=== PATIENT | male | born 1995 | race Caucasian/White ===

== ENCOUNTER 2019-10-02 06:31 | Inpatient (IN) | payer MEDICAID ==
[~2019-10-02] VITALS: Ht 182.9 cm; Wt 92.1 kg
--- NOTE | 2019-10-02 06:48 | NUR ---
MD FRIEDMAN AT BEDSIDE FOR MSE
--- NOTE | 2019-10-02 06:50 | NUR ---
PT PRESENTS TO ED WITH C/O L SIDED HEAD PAIN/ NUMBNESS. PER PT HE STATES "I DID LIKE A GRAM OF COCAINE AT LEAST AND NOW I CANT FEEL MY THE LEFT SIDE OF MY HEAD OR MY FINGERS ON MY RIGHT HAND". PT STATES THAT HE DOES NASAL INHALATION OF COCAINE OCCASIONALLY FOR RECREATION AND DENIES ANY SI OR HI. PT STATES "I LOVE MY LIFE". PT AXO X4. PT SPEAKING IN CLEAR AND FULL SENTENCES. PT STATES THAT HIS STEP DAD DROPPED HIM OFF AND THAT HE WANTED TO CALL HIS MOTHER. PT CONNECTED TO FULL CM AND PULSE OX MONITORS. NAD AT THIS TIME. AWAITING NEW ORDERS
--- NOTE | 2019-10-02 07:20 | NUR ---
REPORT GIVEN TO RAKESH Mulligan RN. ALL QUESTIONS AND CONCERNS ADDRESSED AT THIS TIME
--- NOTE | 2019-10-02 07:22 | NUR ---
PT RECLINING ON GURCHAN WITH NAD. PT STATES " I FEEL SO MUCH BETTER AFTER THE STUFF YOU GUYS GAVE ME, IM SO STUPID, IM NEVER GOING TO DO THAT AGAIN." FLUIDS RUNNING WITH NO INCIDENCE. PT HOOKED UP TO FULL MONIOTRS, WILL CONTINUE TO MONITOR.
[2019-10-02 07:24] LABS: BASOPHIL % 0.4 % (0-2); PLATELET COUNT 243 x10^3mcL (130-400); RED CELL DISTRIBUTION WIDTH 13.1 % (11.5-14.5)
--- NOTE | 2019-10-02 07:30 | NUR ---
PT AMBULATED TO THE RESTROOM WITH STEADY GAIT AND NAD
[2019-10-02 07:38] LABS: CALCIUM 8.9 mg/dL (8.5-10.1); CREATININE SERUM 0.9 mg/dL (0.7-1.3); GFR1 > 60 mL/min; GLUCOSE SERUM 101 mg/dL (74-106)
[2019-10-02 07:42] LABS: ALBUMIN 4.1 g/dL (3.4-5.0); ALKALINE PHOSPHATASE 85 U/L (46-116); ALT/SGPT 49 U/L (16-63); AST/SGOT 46 U/L (15-37); BILIRUBIN TOTAL 0.5 mg/dL (0.20-1.00); CHLORIDE SERUM 99 mmol/L (98-107); POTASSIUM SERUM 3.4 mmol/L (3.5-5.1); SODIUM SERUM 135 mmol/L (136-145); TOTAL PROTEIN, SERUM 7.3 g/dL (6.4-8.2)
[2019-10-02 08:35] LABS: AMPHETAMINE QUAL UR NONE DETECTED (See below)
--- NOTE | 2019-10-02 09:45 | NUR ---
PT MOM AT BEDSIDE
--- NOTE | 2019-10-02 10:55 | NUR ---
PT SLEEPING, EASILY AROUSABLE WITH NAD. FLUIDS RUNNING WITH NO INCIDENCE, WILL CONTINUE TO MONITOR.
--- NOTE | 2019-10-02 12:24 | NUR ---
DR FRIEDMAN AT BEDSIDE SPEAKING WITH PT ABOUT ADMISSION PT AGREES
[2019-10-02 13:10] LABS: MAGNESIUM 2.1 mg/dL (1.8-2.4); PHOSPHOROUS 4.7 mg/dL (2.5-4.9)
--- NOTE | 2019-10-02 13:14 | NUR ---
REPORT GIVEN TO AUGUSTINA GUERRA FOR FURTHER CARE OF PT
--- NOTE | 2019-10-02 14:30 | NUR ---
RECEIVED PT FROM ED VIA [employer], CAME IN DUE TO NUMBNESS ON THE FACE AFTER COCAINE USE. AAOX4 STATED THAT HE HAS MILD HEADACHE. DENIES DIZZINESS. ABLE TOFOLLOW COMMANDS. DENIES NUMBNESS/TINGLING SENSATION AT THIS TIME. NO FACIAL DROOP/ARM DRIFT NOTED. NO SOB NOTED, LUNG SOUNDS CTA. DENIES CHEST PAIN/PRESSURE, SR W/ ELEVATED ST ON THE MONITOR, HR AT 85. DENIES NUMBNESS/TINGLING SENSATION. NO EDEMA NOTED. STATED THAT HE HAD 1 DIARRHEAL EPISODE TODAY. DENIES ABDOMINAL PAIN/NAUSEA/VOMITING. ABDOMEN IS SOFT. BOWEL SOUNDS ACTIVE. VOIDS. IV SITE PATENT AND INTACT. SIDE RAILS UPX2. CALL LIGHT ON REACH. MOTHER AT BEDSIDE. ENDORSED TO PRIMARY NURSE MARQUIS FOR CONTINUITY OF CARE
[2019-10-02 14:35] VITALS: BP 140/90
[2019-10-02 14:45] VITALS: Ht 182.9 cm; Wt 92.1 kg
--- NOTE | 2019-10-02 15:21 | NUR ---
PT RESTING IN BED. NO ACUTE DISTRESS. SLEEPING BUT EASILY AROUSABLE. IVF INFUSING, NO REDNESS OR SWELLING NOTED. CALL LIGHT WITHIN REACH. WILL CONTINUE TO MONITOR.
[2019-10-02 16:35] VITALS: BP 106/73
--- NOTE | 2019-10-02 17:58 | NUR ---
PT SITTING UP IN BED EATING DINNER. NO ACUTE DISTRESS. C/O MILD HEADACHE BUT TOLERABLE. IVF INFUSING, NO REDNESS OR SWELLING NOTED. CALL LIGHT WITHIN REACH. WILL BED IN LOW POSITION, CALL LIGHT WITHIN REACH. WILL ENDORSE TO ONCOMING SHIFT.
--- NOTE | 2019-10-02 19:25 | NUR ---
Pt. received from day shift currently resting in bed. Pt. is a/o x4, able to make needs known, able to follow commands, and has no c/o h/a at this time. Pt. came in last night d/t a Cocaine OD. Pt. at this time has no c/o pain, chest pain, n,v, or s/o distress or SOB. Otherwise pt. stable, was able to eat dinner, ambulatory, IV site patent and dressing in tact. Pt. safety in check w/ call light placed within reach, educated pt. on when and how to use call light system, bed set at lowest position, will continue to monitor.
[2019-10-02 19:28] VITALS: BP 120/63
--- NOTE | 2019-10-03 02:16 | NUR ---
Pt. asleep through most of the night at this time. Pt. easily arousable using verbal stimuili. Pt. noted to have 1 episode of diarrhea, other campos pt. stable. No c/o pain, chest pain, h/a, n,v, or s/o distress, discomfort or SOB. Will continue to monitor pt. and endorse to next shift RN.
[2019-10-03 04:45] VITALS: BP 102/59
--- NOTE | 2019-10-03 06:54 | NUR ---
Pt. asleep throughout most of the night, easily arousable using verbal stimuli. Pt. stable, no c/o pain, chest pain, h/a, n/v, or s/o SOB or distress. Will continue to monitor pt. until end of shift and endorse to oncoming RN.
[2019-10-03 07:10] LABS: CALCIUM 8.4 mg/dL (8.5-10.1); CHLORIDE SERUM 103 mmol/L (98-107); CREATININE SERUM 0.8 mg/dL (0.7-1.3); GFR1 > 60 mL/min; GLUCOSE SERUM 91 mg/dL (74-106); SODIUM SERUM 136 mmol/L (136-145)
[2019-10-03 07:13] LABS: BASOPHIL % 0.6 % (0-2); PLATELET COUNT 212 x10^3mcL (130-400); RED CELL DISTRIBUTION WIDTH 13.4 % (11.5-14.5)
--- NOTE | 2019-10-03 07:30 | NUR ---
REPORT RECEIVED FROM MARI RICK. PATIENT RESTING. NO SIGNS OF DISTRESS.
--- NOTE | 2019-10-03 08:26 | NUR ---
PATIENT EATING BREAKFAST.
[2019-10-03 08:59] VITALS: BP 106/61
[2019-10-03 12:12] VITALS: BP 122/74
--- NOTE | 2019-10-03 15:38 | NUR ---
DR. ALBERT MADE ROUNDS TO SEE PATIENT. PATIENT STABLE TO GO FROM HIS STANDPOINT.
--- NOTE | 2019-10-03 16:08 | NUR ---
PATIENT EXPLAINED THAT HE WANTS TO GO HOME. LET HCP NAY KNOW OF PATIENT CONCERNS. WILL CONTINUE TO MONITOR PATIENT'S DISEASE PROCESS AND FOLLOW POC. OFFERED PATIENT TO SIGN AMA IF HE WANTS TO GO HOME.
--- NOTE | 2019-10-03 16:56 | NUR ---
Discount pharmacy card and list to low cost medical clinics given to patient by Alyssa Bowser.
--- NOTE | 2019-10-03 19:30 | NUR ---
PT RESTING IN BED AT THIS TIME. DENIES PAIN OR DISCOMFORT. BREATHING E/U ON RA. NO S/S OF ACUTE DISTRESS NOTED AT THIS TIME. PALPABLPE PULSES, NO EDEMA AT THIS TIME. ABD SOFT AND ROUND, DENIES PAIN TO PALPATION. IV TO RAC, INTACT AND INFUSING AT THIS TIME. ALL NEEDS AND CONCERNS ADDRESSED AT THIS TIME. BED AT LOWEST POSITION. CALL LIGHT WITHIN REACH. WILL CONTINUE TO MONITOR.
[2019-10-03 21:13] VITALS: BP 131/81
--- NOTE | 2019-10-04 | NUR ---
PT RESTING IN BED AT THIS TIME. DENIES PAIN OR DISCOMFORT. BREATHING E/U ON RA. NO S/S OF PAIN OR DISCOMFORT NOTED. WILL CONTINUE TO MONITOR.
[2019-10-04 05:36] VITALS: BP 99/55
--- NOTE | 2019-10-04 06:37 | NUR ---
PT RESTING IN BED AT THIS TIME, DENIES PAIN OR DISCOMFORT. BREATHING E/U ON RA. NO SIGNS OF ACUTE DISTRESS NOTED. ALL NEEDS AND CONCERNS ADDRESSED. BED AT LOWEST POSITION. CALL LIGHT WITHIN REACH. WILL ENDORSE TO DAY NURSE.
[2019-10-04 06:42] LABS: CALCIUM 8.2 mg/dL (8.5-10.1); CARBON DIOXIDE 30.7 mmol/L (21-32); CHLORIDE SERUM 107 mmol/L (98-107); GFR1 > 60 mL/min; GLUCOSE SERUM 97 mg/dL (74-106); POTASSIUM SERUM 4.2 mmol/L (3.5-5.1); SODIUM SERUM 144 mmol/L (136-145)
[2019-10-04 06:46] LABS: BASOPHIL % 0.8 % (0-2); PLATELET COUNT 232 x10^3mcL (130-400); RED CELL DISTRIBUTION WIDTH 13.4 % (11.5-14.5)
--- NOTE | 2019-10-04 08:00 | NUR ---
REPORT RECEIVED FROM MARI KOLB. PATIENT IN STABLE CONDITION. NO DISTRESS NOTED. WILL CONTINUE TO MONITOR. CALL LIGHT WITHIN REACH.
[2019-10-04 08:32] VITALS: BP 111/57
[2019-10-04 10:13] VITALS: BP 122/87
--- NOTE | 2019-10-04 10:18 | NUR ---
Discharge education provided for patient. All post-discharge information provided. Patient exhibits readiness for discharge. No signs of distress. IV Catheter removed. C/D/I. No signs of infiltration. Dressing applied to site. All belongings returned to patient. Offered patient wheelchair to go down to front lobby. Patient safely discharged to family vehicle.
== END 2019-10-04 10:37 | disposition home or self-care (01) | DRG 816 ==
LOC: ED 06:31 → DU 12:36 → MU 12:36 → DU 14:31 → MU 10-03 17:03
PROVIDERS: Emergency Medicine; ADMIT Family Medicine
DX: T40.5X1A Poisoning by cocaine, accidental (unintentional), initial encounter (principal); M62.82 Rhabdomyolysis; R07.9 Chest pain, unspecified; E87.6 Hypokalemia; F14.188 Cocaine abuse with other cocaine-induced disorder; Y92.9 Unspecified place or not applicable
CPT/HCPCS: 90658; G0378; J2060; J7030

== ENCOUNTER 2020-11-12 19:20 | Emergency (ER) | payer BC ==
[~2020-11-12] VITALS: Ht 182.9 cm; Wt 91.6 kg
[2020-11-12 19:31] VITALS: Ht 182.9 cm; Wt 91.6 kg
[2020-11-12 20:41] LABS: BASOPHIL % 0.5 % (0.2-1.5); PLATELET COUNT 245 x10^3mcL (152-348); RED CELL DISTRIBUTION WIDTH 12.9 % (12.1-16.2)
[2020-11-12 20:52] LABS: CALCIUM 9.3 mg/dL (8.5-10.1); CARBON DIOXIDE 29.7 mmol/L (21-32); CHLORIDE SERUM 103 mmol/L (98-107); CREATININE SERUM 0.9 mg/dL (0.7-1.3); GFR1 > 60 mL/min; GLUCOSE SERUM 94 mg/dL (74-106); POTASSIUM SERUM 4.1 mmol/L (3.5-5.1); SODIUM SERUM 142 mmol/L (136-145)
[2020-11-12 21:03] LABS: FREE T4 0.88 ng/dL (0.76-1.46)
[2020-11-12] MEDS ORDERED: IBUPROFEN600 MG PO (21:20)
[2020-11-12] MEDS ORDERED: GOOD NEIGHBOR M25 MG PO (21:20)
[2020-11-12 21:48] VITALS: BP 140/87
== END 2020-11-12 21:48 | disposition home or self-care (01) ==
LOC: ED 19:20
PROVIDERS: Emergency Medicine
DX: S09.8XXA Other specified injuries of head, initial encounter (principal); R42 Dizziness and giddiness; V49.09XA Driver injured in collision with other motor vehicles in nontraffic accident, initial encounter; Y93.I9 Activity, other involving external motion; Y92.488 Other paved roadways as the place of occurrence of the external cause; Y99.8 Other external cause status
CPT/HCPCS: 84439; J1885; J8597